=== PATIENT | female | born 1980 | race Caucasian/White ===

== ENCOUNTER 2017-03-11 12:10 | Emergency (ER) | payer MEDICAID ==
--- NOTE | 2017-03-11 12:28 | EDM.PDOC ---
ED HPI GENERAL MEDICAL PROBLEM - General Chief Complaint: ENT Problem Stated Complaint: FEVER Time Seen by Provider: 03/11/17 12:14 - History of Present Illness INITIAL COMMENTS - FREE TEXT/NARRATIVE: HISTORY AND PHYSICAL: History of present illness: The patient is a 37-year-old female who presents with a low-grade temperature and feeling like she's going to start getting higher fever and a long-standing history of recurrent strep throat infections over the last one year. She says she is to have her tonsils removed in January but because of her living situation and her financial situation she could not follow through. She says she has recently moved here from [place] and is new to the area and does not have a clinic provider. She says that her right ear has been bothering her and a little bit of a sore throat and she has noticed a swollen gland on the right side she has no neck pain posteriorly no headache no chest pain or shortness of breath no nausea vomiting or diarrhea. Patient denies . Review of systems: As per history of present illness and below otherwise all systems reviewed and negative. Past medical history: As per history of present illness and as reviewed below otherwise noncontributory. Surgical history: As per history of present illness and as reviewed below otherwise noncontributory. Social history: No reported history of drug or alcohol abuse. Family history: As per history of present illness and as reviewed below otherwise noncontributory. Physical exam: Gen.: Well-developed well-nourished female whose voice is intact without hoarse or muffled voice and vital signs have been reviewed by me. HEENT: Atraumatic, normocephalic, pupils reactive, negative for conjunctival pallor or scleral icterus, mucous membranes moist, throat clear of exudates and there is only minimal posterior oropharyngeal erythema without gross tonsillar swelling and uvula is midline, there is a large lymph node in the anterior cervical region on the right without any left-sided adenopathy or posterior adenopathy. TMs are dulled bilaterally without any bulging and there is no mastoid tenderness or redness,, neck supple, nontender, trachea midline. Lungs: Clear to auscultation, breath sounds equal bilaterally, chest nontender. Heart: S1S2, regular rate and rhythm no overt murmurs Abdomen: Soft, nondistended, nontender. NABS Skin: No evidence of any overt rashes or lesions and turgor is normal Genitourinary: Deferred. Rectal: Deferred. Extremities: Atraumatic, negative for cords or calf pain. Neurovascular unremarkable. Neuro: Awake, alert, oriented. Cranial nerves II through XII unremarkable. Cerebellum unremarkable. Motor and sensory unremarkable throughout. Exam nonfocal. Diagnostics: Therapeutics: I discussed with the patient that her throat only looks slightly red and there is no exudates or tonsillar swelling but the concern is more for the swollen gland on the right anterior cervical chain. In light of her history I will go ahead and treat her with antibiotics and give her referral to our clinic as well as our ENT specialist Dr. Espino. Impression: Cervical adenopathy, pharyngitis Definitive disposition and diagnosis as appropriate pending reevaluation and review of above. ED ROS GENERAL - Review of Systems Review Of Systems: ROS reveals no pertinent complaints other than HPI. ED EXAM, GENERAL - Physical Exam Exam: See Below (See dictation) Departure - Departure Time of Disposition: 12:26 Disposition: Home, Self-Care 01 Condition: Good Clinical Impression: Cervical lymphadenopathy Pharyngitis Qualifiers: Pharyngitis/tonsillitis etiology: unspecified etiology Qualified Code(s): J02.9 - Acute pharyngitis, unspecified - Discharge Information Forms: ED Department Discharge Additional Instructions: The following information is given to patients seen in the emergency department who are being discharged to home. This information is to outline your options for follow-up care. We provide all patients seen in our emergency department with a follow-up referral. The need for follow-up, as well as the timing and circumstances, are variable depending upon the specifics of your emergency department visit. If you don't have a primary care physician on staff, we will provide you with a referral. We always advise you to contact your personal physician following an emergency department visit to inform them of the circumstance of the visit and for follow-up with them and/or the need for any referrals to a consulting specialist. The emergency department will also refer you to a specialist when appropriate. This referral assures that you have the opportunity for followup care with a specialist. All of these measure are taken in an effort to provide you with optimal care, which includes your followup. Under all circumstances we always encourage you to contact your private physician who remains a resource for coordinating your care. When calling for followup care, please make the office aware that this follow-up is from your recent emergency room visit. If for any reason you are refused follow-up, please contact the [facility] emergency department at and ask to speak to the emergency department charge nurse. [facility] Primary care- Internal Medicine and Family [facility] [place] [id number] [facility] Specialty Care - ENT [facility] [place] [phone] Please call and schedule a clinic follow-up appointment that he can be rechecked for the care plan we have been implementing here today. Push hydration and use [id number] Tylenol or ibuprofen for pain. Taking Biaxin until they are finished even if you're feeling better. ER as needed and as discussed
[2017-03-11 12:39] VITALS: BP 107/56
== END 2017-03-11 12:36 | disposition home or self-care (01) ==
LOC: MW.ED 12:10
DX: R59.0 Localized enlarged lymph nodes (principal); J02.9 Acute pharyngitis, unspecified
CPT/HCPCS: 99283

== ENCOUNTER 2017-04-10 11:56 | Emergency (ER) | payer MEDICAID ==
--- NOTE | 2017-04-10 12:09 | EDM.PDOC ---
ED HPI GENERAL MEDICAL PROBLEM - General Chief Complaint: General Stated Complaint: BODY ACHES, NAUSEATED, HEADACHE Time Seen by Provider: 04/10/17 12:08 Source of Information: Reports: Patient History Limitations: Reports: No Limitations - History of Present Illness INITIAL COMMENTS - FREE TEXT/NARRATIVE: HISTORY AND PHYSICAL: History of present illness: Patient is a 37-year-old female that presents to the emergency room today with complaints of nausea, diaphoresis, body aches, diarrhea, and low abdominal pain related to menses. Reports she woke up last night "sweaty" and was unable to get comfortable. Reports she has been taking Midol with minimal relief. Denies any vomiting, fever, chills, headache. States she is currently menstruating, normally has some cramping associated with this. No changes in her menses flow/duration - "normal" per patient report. Past medical history of headaches. Review of systems: As per history of present illness and below otherwise all systems reviewed and negative. Past medical history: As per history of present illness and as reviewed below otherwise noncontributory. Surgical history: As per history of present illness and as reviewed below otherwise noncontributory. Social history: No reported history of drug or alcohol abuse. Family history: As per history of present illness and as reviewed below otherwise noncontributory. Physical exam: General: Nontoxic appearing 37-year-old female. Able to speak in full sentences without shortness of breath. Answers questions appropriately. Alert and oriented HEENT: Atraumatic, normocephalic, pupils reactive, negative for conjunctival pallor or scleral icterus, mucous membranes moist, throat clear, neck supple, nontender, trachea midline. Lungs: Clear to auscultation, breath sounds equal bilaterally, chest nontender. Heart: S1S2, regular, negative for clicks, rubs, or JVD. Abdomen: Soft, nondistended, nontender. Negative for masses or hepatosplenomegaly. Negative for costovertebral tenderness. Pelvis: Stable nontender. Genitourinary: Deferred. Rectal: Deferred. Extremities: Atraumatic, negative for cords or calf pain. Neurovascular unremarkable. Neuro: Awake, alert, oriented. Cranial nerves II through XII unremarkable. Cerebellum unremarkable. Motor and sensory unremarkable throughout. Exam nonfocal. Diagnostics: CBC, CMP, UA, lipase, amylase, EKG Therapeutics: IV fluid, Zofran, Toradol Impression: #1 Nausea #2 Viral illness Plan: 1. May take Zofran as needed for nausea. Rest and try to increase her oral fluids to stay well hydrated. 2. May take Tylenol and/or ibuprofen as directed for body aches and pains. 3. Follow-up with her primary care provider in the next 1-2 days. Return to the ED as needed as discussed Definitive disposition and diagnosis as appropriate pending reevaluation and review of above. Onset: Other (Last night) Onset Date: 04/09/17 Duration: Hour(s): - Related Data Allergies Allergy/AdvReac Type Severity Reaction Status Date / Time bee pollen Allergy Hives Verified 04/10/17 12:09 Bleach (Sodium Hypochlorite) Allergy Hives Verified 04/10/17 12:09 cinnamon Allergy Hives Verified 04/10/17 12:09 orange Allergy Hives Verified 04/10/17 12:09 scorpion venom Allergy Airway Verified 04/10/17 12:09 Tightness Sulfa (Sulfonamide Allergy Hives Verified 04/10/17 12:09 Antibiotics) Home Meds: Home Meds Cetirizine [ZyrTEC] 10 mg DAILY 03/11/17 [History] Multivitamin [Multi-Vitamin Daily] 1 tab DAILY 03/11/17 [History] Past Medical History HEENT History: Reports: Otitis Media Cardiovascular History: Reports: None Respiratory History: Reports: None Gastrointestinal History: Reports: None Genitourinary History: Reports: None AUTH SPECIALIST History: Reports: None Musculoskeletal History: Reports: None Neurological History: Reports: None Psychiatric History: Reports: None Endocrine/Metabolic History: Reports: None Immunologic History: Reports: None Oncologic (Cancer) History: Reports: None Dermatologic History: Reports: None - Infectious Disease History Infectious Disease History: Reports: None - Past Surgical History Head Surgeries/Procedures: Reports: None HEENT Surgical History: Reports: Adenoidectomy, Other (See Below) Other HEENT Surgeries/Procedures: chronic strep throat Female Surgical History: Reports: Section, Tubal Ligation Social & Family History - Tobacco Use Smoking Status *Q: Current Every Day Smoker Years of Tobacco use: 5 Packs/Tins Daily: 0.5 - Recreational Drug Use Recreational Drug Use: No ED ROS GENERAL - Review of Systems Review Of Systems: ROS reveals no pertinent complaints other than HPI. ED EXAM, GENERAL - Physical Exam Exam: See Below (See dictation) EKG INTERPRETATION EKG Date: 04/10/17 Time: 13:09 Rhythm: NSR Rate (Beats/Min): 54 Comparison: NA - No Prior EKG Course - Vital Signs Last Recorded V/S: Last Vital Signs Temp 36.3 C 04/10/17 12:04 Pulse 64 04/10/17 12:04 Resp 18 04/10/17 12:04 BP 118/67 04/10/17 12:04 Pulse Ox 98 04/10/17 12:04 - Orders/Labs/Meds Orders: Active Orders 24 hr Category Date Time Status EKG Documentation Completion [RC] STAT Care 04/10/17 12:19 Active Labs: Laboratory Tests 04/10/17 04/10/17 04/10/17 Range/Units 12:44 12:44 13:40 WBC 9.69 (4.0-11.0) K/uL RBC 4.01 L (4.30-5.90) M/uL Hgb 13.0 (12.0-16.0) g/dL Hct 38.1 (36.0-46.0) % MCV 95.0 (80.0-98.0) fL MCH 32.4 H (27.0-32.0) pg MCHC 34.1 (31.0-37.0) g/dL RDW Std Deviation 46.0 (28.0-62.0) fl RDW Coeff of Keisha 13 (11.0-15.0) % Plt Count 320 (150-400) K/uL MPV 10.20 (7.40-12.00) fL Neut % (Auto) 60.1 (48.0-80.0) % Lymph % (Auto) 31.7 (16.0-40.0) % [place] % (Auto) 6.1 (0.0-15.0) % Eos % (Auto) 1.8 (0.0-7.0) % Baso % (Auto) 0.3 (0.0-1.5) % Neut # (Auto) 5.8 H (1.4-5.7) K/uL Lymph # (Auto) 3.1 H (0.6-2.4) K/uL [place] # (Auto) 0.6 (0.0-0.8) K/uL Eos # (Auto) 0.2 (0.0-0.7) K/uL Baso # (Auto) 0.0 (0.0-0.1) K/uL Nucleated RBC % 0.0 /100WBC Nucleated RBCs # 0 K/uL Sodium 138 (136-146) mmol/L Potassium 4.0 (3.5-5.1) mmol/L Chloride 109 (98-110) mmol/L Carbon Dioxide 20 L (21-31) mmol/L BUN 10 (6.0-23.0) mg/dL Creatinine 0.7 (0.6-1.5) mg/dL Est Cr Clr Drug Dosing 97.07 mL/min Estimated GFR (MDRD) > 60.0 ml/min Glucose 97 (60-110) mg/dL Calcium 9.0 (8.8-10.8) mg/dL Total Bilirubin 0.4 (0.1-1.5) mg/dL AST 18 (5-40) IU/L ALT 24 (8-54) IU/L Alkaline Phosphatase 63 (40-150) Total Protein 7.1 (6.0-8.0) g/dL Albumin 4.1 (3.5-5.0) g/dL Globulin 3.0 (2.0-3.5) g/dL Albumin/Globulin Ratio 1.4 (1.3-2.8) Amylase 37 (10-90) U/L Lipase 12 (7-80) U/L Urine Color YELLOW Urine Appearance CLEAR Urine pH 5.5 (5.0-8.0) Ur Specific [place] 1.010 (1.001-1.035) Urine Protein NEGATIVE (NEGATIVE) mg/dL Urine Glucose (UA) NEGATIVE (NEGATIVE) mg/dL Urine Ketones NEGATIVE (NEGATIVE) mg/dL Urine Occult Blood LARGE H (NEGATIVE) Urine Nitrite NEGATIVE (NEGATIVE) Urine Bilirubin NEGATIVE (NEGATIVE) Urine Urobilinogen 0.2 (<2.0) EU/dL Ur Leukocyte Esterase NEGATIVE (NEGATIVE) Urine RBC 5-7 (0-2/HPF) Urine WBC 0-2 (0-5/HPF) Ur Epithelial Cells OCCASIONAL (NONE-FEW) Urine Bacteria RARE (NEGATIVE) Meds: Medications Discontinued Medications Generic Name Dose Route Start Last Admin Trade Name Freq PRN Reason Stop Dose Admin Sodium Chloride 1,000 mls @ 999 mls/hr 04/10/17 12:19 04/10/17 12:51 Normal Saline IV 04/10/17 13:19 999 mls/hr STAT ONE Administration Ketorolac Tromethamine 30 mg 04/10/17 12:19 04/10/17 12:53 Toradol IVPUSH 04/10/17 12:20 30 mg ONETIME ONE Administration Ondansetron HCl 4 mg 04/10/17 12:19 04/10/17 12:52 Zofran IVPUSH 04/10/17 12:20 4 mg ONETIME ONE Administration Departure - Departure Time of Disposition: 14:04 Disposition: Home, Self-Care 01 Condition: Good Clinical Impression: Viral illness Nausea & vomiting Qualifiers: Vomiting type: unspecified Vomiting Intractability: unspecified Qualified Code( s): R11.2 - Nausea with vomiting, unspecified - Discharge Information Referrals: Leila Ricketts MD [Primary Care Provider] - Forms: ED Department Discharge Additional Instructions: The following information is given to patients seen in the emergency department who are being discharged to home. This information is to outline your options for follow-up care. We provide all patients seen in our emergency department with a follow-up referral. The need for follow-up, as well as the timing and circumstances, are variable depending upon the specifics of your emergency department visit. If you don't have a primary care physician on staff, we will provide you with a referral. We always advise you to contact your personal physician following an emergency department visit to inform them of the circumstance of the visit and for follow-up with them and/or the need for any referrals to a consulting specialist. The emergency department will also refer you to a specialist when appropriate. This referral assures that you have the opportunity for follow-up care with a specialist. All of these measure are taken in an effort to provide you with optimal care, which includes your follow-up. Under all circumstances we always encourage you to contact your private physician who remains a resource for coordinating your care. When calling for follow-up care, please make the office aware that this follow-up is from your recent emergency room visit. If for any reason you are refused follow-up, please contact the [facility] emergency department at and asked to speak to the emergency department charge nurse. Rayray Escudero [facility] - Primary Care [address] [place] [id number] 1. May take Zofran as needed for nausea. Rest and try to increase your oral fluids to stay well hydrated. 2. May take Tylenol and/or ibuprofen as directed for body aches and pains. 3. Follow-up with her primary care provider in the next 1-2 days. Return to the ED as needed as discussed - My Orders Last 24 Hours: My Active Orders 04/10/17 12:19 EKG Documentation Completion [RC] STAT - Assessment/Plan Last 24 Hours: My Active Orders 04/10/17 12:19 EKG Documentation Completion [RC] STAT
[2017-04-10] MEDS ORDERED: Ondansetron 4 MG/2 ML SDV IVPUSH ONE (12:19)
[2017-04-10] MEDS ORDERED: Ketorolac 30 MG/ML SDV IVPUSH ONE (12:19)
[2017-04-10] MEDS ORDERED: Sodium Chloride 0.9% 1,000 ML IV ONE (12:19)
[2017-04-10 13:29] LABS: CHLORIDE,CL 109 mmol/L (98-110); SODIUM,NA 138 mmol/L (136-146)
[2017-04-10 14:33] VITALS: BP 113/68
== END 2017-04-10 14:15 | disposition home or self-care (01) ==
LOC: MW.ED 11:56
DX: B34.9 Viral infection, unspecified (principal); F17.210 Nicotine dependence, cigarettes, uncomplicated; Z91.030 Bee allergy status; Z88.2 Allergy status to sulfonamides; Z79.899 Other long term (current) drug therapy; Z98.890 Other specified postprocedural states
CPT/HCPCS: 36415; 80053; 81001; 82150; 83690; 85025; 93005; 96361; 96374; 96375; 99283; J1885; J2405; J7040

== ENCOUNTER 2017-05-12 23:11 | Emergency (ER) | payer MEDICAID ==
--- NOTE | 2017-05-12 23:36 | EDM.PDOC ---
ED HPI GENERAL MEDICAL PROBLEM - General Chief Complaint: Lower Extremity Injury/Pain Stated Complaint: PT LT LEG HURT Time Seen by Provider: 05/12/17 23:34 Source of Information: Reports: Patient - History of Present Illness INITIAL COMMENTS - FREE TEXT/NARRATIVE: HISTORY AND PHYSICAL: History of present illness: []Patient presents with left knee pain she rates 4 out of 10, she has a history of tendinitis on the left knee tonight she is concerned that her foot seems cool to the touch, she is in no distress she has good pedal pulses good color normal capillary refill in the foot appears just fine. She is able to bear weight but has some discomfort about the knee in doing so she denies any injury or trauma No fever nausea vomiting chills sweats Patient has history of tubal ligation Review of systems: As per history of present illness and below otherwise all systems reviewed and negative. Past medical history: As per history of present illness and as reviewed below otherwise noncontributory. Surgical history: As per history of present illness and as reviewed below otherwise noncontributory. Social history: No reported history of drug or alcohol abuse. Family history: As per history of present illness and as reviewed below otherwise noncontributory. Physical exam: HEENT: Atraumatic, normocephalic, pupils reactive, negative for conjunctival pallor or scleral icterus, mucous membranes moist, throat clear, neck supple, nontender, trachea midline. Lungs: Clear to auscultation, breath sounds equal bilaterally, chest nontender. Heart: S1S2, regular, negative for clicks, rubs, or JVD. Abdomen: Soft, nondistended, nontender. Negative for masses or hepatosplenomegaly. Negative for costovertebral tenderness. Pelvis: Stable nontender. Genitourinary: Deferred. Rectal: Deferred. Extremities: Atraumatic, negative for cords or calf pain. Neurovascular unremarkable. Left knee no redness warmth open lesion exudate or bruising no ballooning of the patella hip and ankle and affected there is some medial joint line tenderness as well as tenderness with palpation of patellar tendon insertion entire limb neurovascularly intact, Homans sign is negative no swelling of calf or thigh Neuro: Awake, alert, oriented. Cranial nerves II through XII unremarkable. Cerebellum unremarkable. Motor and sensory unremarkable throughout. Exam nonfocal. Diagnostics: []X-ray left knee 3 views No hCG secondary to tubal ligation Therapeutics: []Rest ice ibuprofen Impression: []Left knee pain History of tendinitis Definitive disposition and diagnosis as appropriate pending reevaluation and review of above. Left Knee Pain Score (Numeric/FACES): 5 - Related Data Allergies Allergy/AdvReac Type Severity Reaction Status Date / Time bee pollen Allergy Hives Verified 04/10/17 12:09 Bleach (Sodium Hypochlorite) Allergy Hives Verified 04/10/17 12:09 cinnamon Allergy Hives Verified 04/10/17 12:09 orange Allergy Hives Verified 04/10/17 12:09 scorpion venom Allergy Airway Verified 04/10/17 12:09 Tightness Sulfa (Sulfonamide Allergy Hives Verified 04/10/17 12:09 Antibiotics) Home Meds: Home Meds Cetirizine [ZyrTEC] 10 mg DAILY 03/11/17 [History] Multivitamin [Multi-Vitamin Daily] 1 tab DAILY 03/11/17 [History] Past Medical History HEENT History: Reports: Otitis Media Cardiovascular History: Reports: None Respiratory History: Reports: None Gastrointestinal History: Reports: None Genitourinary History: Reports: None RECREATION COORDINATOR History: Reports: None Musculoskeletal History: Reports: None Neurological History: Reports: None Psychiatric History: Reports: None Endocrine/Metabolic History: Reports: None Immunologic History: Reports: None Oncologic (Cancer) History: Reports: None Dermatologic History: Reports: None - Infectious Disease History Infectious Disease History: Reports: None - Past Surgical History Head Surgeries/Procedures: Reports: None HEENT Surgical History: Reports: Adenoidectomy, Other (See Below) Other HEENT Surgeries/Procedures: chronic strep throat Female Surgical History: Reports: Section, Tubal Ligation Social & Family History - Tobacco Use Smoking Status *Q: Current Every Day Smoker Years of Tobacco use: 5 Packs/Tins Daily: 0.5 - Caffeine Use Caffeine Use: Reports: Coffee, Energy Drinks, Soda - Recreational Drug Use Recreational Drug Use: No Drug Use in Last 12 Months: No Review of Systems - Review of Systems Review Of Systems: ROS reveals no pertinent complaints other than HPI. ED EXAM, GENERAL - Physical Exam Exam: See Below Course - Vital Signs Last Recorded V/S: Last Vital Signs Temp 36.7 C 05/12/17 23:25 Pulse 82 05/12/17 23:25 Resp 17 05/12/17 23:25 BP 107/55 L 05/12/17 23:25 Pulse Ox 98 05/12/17 23:25 - Orders/Labs/Meds Orders: Active Orders 24 hr Category Date Time Status Knee 3V Lt [CR] Stat Exams 05/12/17 23:33 Taken Departure - Departure Time of Disposition: 00:28 Disposition: Home, Self-Care 01 Condition: Good Clinical Impression: Knee pain - Discharge Information Referrals: PCP,None [Primary Care Provider] - Forms: ED Department Discharge Additional Instructions: Continue rest ice and ibuprofen as needed Follow-up with orthopedist for evaluation with the medial joint line tenderness and old meniscus is a consideration Return if symptoms persist or worsen Tonight your foot has good strong pulses with no abnormality [facility] - [facility] Clinic [address], [address] [place] [address] my orthopedic The following information is given to patients seen in the emergency department who are being discharged to home. This information is to outline your options for follow-up care. We provide all patients seen in our emergency department with a follow-up referral. The need for follow-up, as well as the timing and circumstances, are variable depending upon the specifics of your emergency department visit. If you don't have a primary care physician on staff, we will provide you with a referral. We always advise you to contact your personal physician following an emergency department visit to inform them of the circumstance of the visit and for follow-up with them and/or the need for any referrals to a consulting specialist. The emergency department will also refer you to a specialist when appropriate. This referral assures that you have the opportunity for follow-up care with a specialist. All of these measure are taken in an effort to provide you with optimal care, which includes your follow-up. Under all circumstances we always encourage you to contact your private physician who remains a resource for coordinating your care. When calling for follow-up care, please make the office aware that this follow-up is from your recent emergency room visit. If for any reason you are refused follow-up, please contact the [facility] emergency department at and asked to speak to the emergency department charge nurse. - My Orders Last 24 Hours: My Active Orders 05/12/17 23:33 Knee 3V Lt [CR] Stat - Assessment/Plan Last 24 Hours: My Active Orders 05/12/17 23:33 Knee 3V Lt [CR] Stat
[2017-05-13 00:39] VITALS: BP 110/63
--- NOTE | 2017-05-13 13:44 | CR ---
EXAM DATE: 05/12/17 PATIENT'S AGE: 37 Patient: FAZAL CASEY Facility: [place], [place] Site . Site : 1980 Study: XRay Knee [id number]/[id number] 12:00:51 AM Ordering Physician: Peggy Bell Final Report: INDICATION: Knee pain, hx of tendonitis TECHNIQUE: Knee radiograph 3 views left COMPARISON: None FINDINGS: Bones: Alignment is normal. No acute fractures or aggressive bone lesions identified. Joint spaces: Unremarkable. No knee effusion is seen on the lateral exam. Soft tissues: Unremarkable. No radiopaque foreign bodies are seen. IMPRESSION: 1. No acute osseous injuries are noted. Dictated by: Georges Flores MD @ 05/13/2017 00:01:38 (Electronic Signature) Report Signed by Proxy. [facility]
== END 2017-05-13 00:34 | disposition home or self-care (01) ==
LOC: MW.ED 23:11
DX: M25.562 Pain in left knee (principal); F17.210 Nicotine dependence, cigarettes, uncomplicated; Z88.2 Allergy status to sulfonamides; Z79.899 Other long term (current) drug therapy
CPT/HCPCS: 73562-26-LT; 73562-LT; 99282; 99283

== ENCOUNTER 2017-05-16 07:23 | Emergency (ER) | payer MEDICAID ==
[2017-05-16 07:33] VITALS: BP 134/81
--- NOTE | 2017-05-16 07:44 | EDM.PDOC ---
ED HPI GENERAL MEDICAL PROBLEM - General Chief Complaint: ENT Problem Stated Complaint: HEADACHE Time Seen by Provider: 05/16/17 07:31 - History of Present Illness INITIAL COMMENTS - FREE TEXT/NARRATIVE: HISTORY AND PHYSICAL: History of present illness: The patient is a 37-year-old female who presents complaining of right ear pain that started at 2 AM. She has not had a fever chills cough runny nose sore throat nausea vomiting or diarrhea. The patient states that despite her several ER visits over the last couple of months she has followed up with Dr. Ricketts in the clinic. Patient denies that anything got into her ear and says that the pain is now radiating down her jaw. She has no sore throat or dental pain. Review of systems: As per history of present illness and below otherwise all systems reviewed and negative. Past medical history: As per history of present illness and as reviewed below otherwise noncontributory. Surgical history: As per history of present illness and as reviewed below otherwise noncontributory. Social history: No reported history of drug or alcohol abuse. Family history: As per history of present illness and as reviewed below otherwise noncontributory. Physical exam: Gen.: Well-developed well-nourished female who is nontoxic and vital signs have been reviewed by me HEENT: Atraumatic, normocephalic, pupils reactive, negative for conjunctival pallor or scleral icterus, mucous membranes moist, throat clear, neck supple, nontender, trachea midline. No cervical adenopathy or nuchal rigidity. There Is no evidence of any facial swelling. The left TM is normal with some slight dulling but there is no mastoid tenderness or redness. The left TM is very reddened and slightly bulging and the external canal has cerumen and debris in it and there is some narrowing and inflammation appreciated. The mastoid is without redness or tenderness on the right Lungs: Clear to auscultation, breath sounds equal bilaterally, chest nontender. Heart: S1S2, regular rate and rhythm no overt murmurs Abdomen: Soft, nondistended, nontender. NABS Pelvis: Stable nontender. Genitourinary: Deferred. Rectal: Deferred. Extremities: Atraumatic, negative for cords or calf pain. Neurovascular unremarkable. Neuro: Awake, alert, oriented. Cranial nerves II through XII unremarkable. Cerebellum unremarkable. Motor and sensory unremarkable throughout. Exam nonfocal. Diagnostics: [] Therapeutics: [] Impression: Right otitis media and otitis externa Definitive disposition and diagnosis as appropriate pending reevaluation and review of above. Right Ear Pain Score (Numeric/FACES): 9 - Related Data Allergies Allergy/AdvReac Type Severity Reaction Status Date / Time bee pollen Allergy Hives Verified 05/16/17 07:30 Bleach (Sodium Hypochlorite) Allergy Hives Verified 05/16/17 07:30 cinnamon Allergy Hives Verified 05/16/17 07:30 orange Allergy Hives Verified 05/16/17 07:30 scorpion venom Allergy Airway Verified 05/16/17 07:30 Tightness Sulfa (Sulfonamide Allergy Hives Verified 05/16/17 07:30 Antibiotics) Home Meds: Home Meds Cetirizine [ZyrTEC] 10 mg DAILY 03/11/17 [History] Multivitamin [Multi-Vitamin Daily] 1 tab DAILY 03/11/17 [History] Past Medical History HEENT History: Reports: Otitis Media Cardiovascular History: Reports: None Respiratory History: Reports: None Gastrointestinal History: Reports: None Genitourinary History: Reports: None 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 Musculoskeletal History: Reports: None Other Musculoskeletal History: tendinitis Neurological History: Reports: None Psychiatric History: Reports: None Endocrine/Metabolic History: Reports: None Immunologic History: Reports: None Oncologic (Cancer) History: Reports: None Dermatologic History: Reports: None - Infectious Disease History Infectious Disease History: Reports: None - Past Surgical History Head Surgeries/Procedures: Reports: None HEENT Surgical History: Reports: Adenoidectomy, Other (See Below) Other HEENT Surgeries/Procedures: chronic strep throat Female Surgical History: Reports: Section, Tubal Ligation Social & Family History - Family History Family Medical History: Noncontributory - Tobacco Use Smoking Status *Q: Current Every Day Smoker Years of Tobacco use: 20 Packs/Tins Daily: 1 - Caffeine Use Caffeine Use: Reports: Soda - Recreational Drug Use Recreational Drug Use: No Drug Use in Last 12 Months: No ED ROS GENERAL - Review of Systems Review Of Systems: ROS reveals no pertinent complaints other than HPI. ED EXAM, GENERAL - Physical Exam Exam: See Below (See dictation) Course - Vital Signs Last Recorded V/S: Last Vital Signs Temp 36.4 C 10/08/17 07:30 Pulse 83 05/16/17 07:30 Resp 18 05/16/17 07:30 BP 134/81 05/16/17 07:30 Pulse Ox 99 05/16/17 07:30 Departure - Departure Time of Disposition: 07:43 Disposition: Home, Self-Care 01 Condition: Good Clinical Impression: Otitis media Qualifiers: Otitis media type: unspecified Chronicity: acute Qualified Code(s): H66.90 - Otitis media, unspecified, unspecified ear Otitis externa Qualifiers: Otitis externa type: unspecified type Chronicity: acute Laterality: right Qualified Code(s): H60.501 - Unspecified acute noninfective otitis externa, right ear - Discharge Information Referrals: Leila Ricketts MD [Primary Care Provider] - Additional Instructions: The following information is given to patients seen in the emergency department who are being discharged to home. This information is to outline your options for follow-up care. We provide all patients seen in our emergency department with a follow-up referral. The need for follow-up, as well as the timing and circumstances, are variable depending upon the specifics of your emergency department visit. If you don't have a primary care physician on staff, we will provide you with a referral. We always advise you to contact your personal physician following an emergency department visit to inform them of the circumstance of the visit and for follow-up with them and/or the need for any referrals to a consulting specialist. The emergency department will also refer you to a specialist when appropriate. This referral assures that you have the opportunity for followup care with a specialist. All of these measure are taken in an effort to provide you with optimal care, which includes your followup. Under all circumstances we always encourage you to contact your private physician who remains a resource for coordinating your care. When calling for followup care, please make the office aware that this follow-up is from your recent emergency room visit. If for any reason you are refused follow-up, please contact the [facility] emergency department at and ask to speak to the emergency department charge nurse. [facility] Primary care- Internal Medicine [place] [address] Please take antibiotics until they're finished and used eardrops as directed, amoxicillin and Cortisporin Insty Meds. Please take [id number] Tylenol or ibuprofen for pain and expect pain to improve over the next several days. Please call and follow-up with your provider in the next few days to reevaluate the care plan and return to ER as needed and as discussed
== END 2017-05-16 07:57 | disposition home or self-care (01) ==
LOC: MW.ED 07:23
DX: H66.91 Otitis media, unspecified, right ear (principal); H60.501 Unspecified acute noninfective otitis externa, right ear; F17.210 Nicotine dependence, cigarettes, uncomplicated; Z88.2 Allergy status to sulfonamides; Z79.899 Other long term (current) drug therapy
CPT/HCPCS: 99282; 99283

== ENCOUNTER 2017-09-20 12:58 | Emergency (ER) | payer MEDICAID ==
[2017-09-20 13:45] VITALS: BP 112/59
--- NOTE | 2017-09-20 14:22 | EDM.PDOC ---
ED HPI GENERAL MEDICAL PROBLEM - General Chief Complaint: Lower Extremity Injury/Pain Stated Complaint: RT ANKLE Time Seen by Provider: 09/20/17 14:16 Source of Information: Reports: Patient History Limitations: Reports: No Limitations - History of Present Illness INITIAL COMMENTS - FREE TEXT/NARRATIVE: HISTORY AND PHYSICAL: History of present illness: [Patient comes to the emergency room complaining of pain to her right hip knee and ankle. States that she was walking on some ice when she slipped and slid but did not fall. She was able to brace herself with her right leg to prevent falling. This occurred at noon today, approximaterly 2 hours prior to being seen in the ER. She now complains of pain extending from her R hip to her R foot. Pain is an aching sensation, and feels like muscle tightness. She has no weakness numbness or tingling. She has not taken any medication for her symptoms. 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 Past medical history: As per history of present illness and as reviewed below otherwise noncontributory. Surgical history: As per history of present illness and as reviewed below otherwise noncontributory. Social history: No reported history of drug or alcohol abuse. Family history: As per history of present illness and as reviewed below otherwise noncontributory. Physical exam: HEENT: Atraumatic, normocephalic. Extremities: Atraumatic in appearance. She is tender with palpation over her right lateral lower leg extending from hip to ankle. No limping with walking. Strength is 5 out of 5. No calf pain or swelling. Neurovascular unremarkable. Neuro: Awake, alert, oriented. Motor and sensory unremarkable throughout. Exam nonfocal. Impression: [Right lower extremity strain] Plan: [Discussed with patient that since she didnt fall, her pain is muscular in nature. Excuse from work until tomorrow. Patient agrees to take naproxen which she already has at home. Follow-up with PCP. Strict return precautions reviewed. Patient is in agreement with today's plan.] Definitive disposition and diagnosis as appropriate pending reevaluation and review of above. right hip, knee, ankle Pain Score (Numeric/FACES): 6 - Related Data Allergies Allergy/AdvReac Type Severity Reaction Status Date / Time bee pollen Allergy Hives Verified 09/20/17 13:41 Bleach (Sodium Hypochlorite) Allergy Hives Verified 09/20/17 13:41 cinnamon Allergy Hives Verified 09/20/17 13:41 orange Allergy Hives Verified 09/20/17 13:41 scorpion venom Allergy Airway Verified 09/20/17 13:41 Tightness Sulfa (Sulfonamide Allergy Hives Verified 09/20/17 13:41 Antibiotics) Home Meds: Home Meds Cetirizine [ZyrTEC] 10 mg PO DAILY 03/11/17 [History] Multivitamin [Multi-Vitamin Daily] 1 tab PO DAILY 03/11/17 [History] Divalproex Sodium [Depakote] 500 mg PO DAILY 09/20/17 [History] Past Medical History HEENT History: Reports: Otitis Media Cardiovascular History: Reports: None Respiratory History: Reports: None Gastrointestinal History: Reports: None Genitourinary History: Reports: None 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 Musculoskeletal History: Reports: None Other Musculoskeletal History: tendinitis Neurological History: Reports: None Psychiatric History: Reports: None Endocrine/Metabolic History: Reports: None Immunologic History: Reports: None Oncologic (Cancer) History: Reports: None Dermatologic History: Reports: None - Infectious Disease History Infectious Disease History: Reports: None - Past Surgical History Head Surgeries/Procedures: Reports: None HEENT Surgical History: Reports: Adenoidectomy, Other (See Below) Other HEENT Surgeries/Procedures: chronic strep throat Female Surgical History: Reports: Section, Tubal Ligation Social & Family History - Family History Family Medical History: Noncontributory - Tobacco Use Smoking Status *Q: Current Every Day Smoker Years of Tobacco use: 20 Packs/Tins Daily: 0.5 - Caffeine Use Caffeine Use: Reports: Coffee, Soda - Recreational Drug Use Recreational Drug Use: No Drug Use in Last 12 Months: No Review of Systems - Review of Systems Review Of Systems: ROS reveals no pertinent complaints other than HPI. ED EXAM, GENERAL - Physical Exam Exam: See Below Course - Vital Signs Last Recorded V/S: Last Vital Signs Temp 96.5 F 09/20/17 13:42 Pulse 86 09/20/17 13:42 Resp 18 09/20/17 13:42 BP 112/59 L 09/20/17 13:42 Pulse Ox 98 09/20/17 13:42 Departure - Departure Time of Disposition: 14:25 Disposition: Home, Self-Care 01 Condition: Good Clinical Impression: Right leg pain - Discharge Information Referrals: Leila Ricketts MD [Primary Care Provider] - Forms: ED Department Discharge Additional Instructions: The following information is given to patients seen in the emergency department who are being discharged to home. This information is to outline your options for follow-up care. We provide all patients seen in our emergency department with a follow-up referral. The need for follow-up, as well as the timing and circumstances, are variable depending upon the specifics of your emergency department visit. If you don't have a primary care physician on staff, we will provide you with a referral. We always advise you to contact your personal physician following an emergency department visit to inform them of the circumstance of the visit and for follow-up with them and/or the need for any referrals to a consulting specialist. The emergency department will also refer you to a specialist when appropriate. This referral assures that you have the opportunity for follow-up care with a specialist. All of these measure are taken in an effort to provide you with optimal care, which includes your follow-up. Under all circumstances we always encourage you to contact your private physician who remains a resource for coordinating your care. When calling for follow-up care, please make the office aware that this follow-up is from your recent emergency room visit. If for any reason you are refused follow-up, please contact the [facility] emergency department at and asked to speak to the emergency department charge nurse. [facility] Primary [facility] [address] [place] [id number] Follow-up with your regular primary care provider at the clinic listed above in 48-72 hours. You may return to work tomorrow. May alternate Tylenol and ibuprofen, or take the naproxen that you have at home. Ice packs may help area discomfort. Return to ER as needed as discussed.
== END 2017-09-20 14:37 | disposition home or self-care (01) ==
LOC: MW.ED 12:58
DX: S86.911A Strain of unspecified muscle(s) and tendon(s) at lower leg level, right leg, initial encounter (principal); F17.210 Nicotine dependence, cigarettes, uncomplicated; Z79.899 Other long term (current) drug therapy; Z88.2 Allergy status to sulfonamides; Z91.030 Bee allergy status; Z91.018 Allergy to other foods; Z91.09 Other allergy status, other than to drugs and biological substances; W18.49XA Other slipping, tripping and stumbling without falling, initial encounter
CPT/HCPCS: 99283

== ENCOUNTER 2018-01-08 06:53 | Emergency (ER) | payer MEDICAID ==
--- NOTE | 2018-01-08 07:12 | EDM.PDOC ---
ED HPI GENERAL MEDICAL PROBLEM - General Chief Complaint: Skin Complaint Stated Complaint: POSSIBLE BUG BITE ON BAG Time Seen by Provider: 01/08/18 07:10 Source of Information: Reports: Patient - History of Present Illness INITIAL COMMENTS - FREE TEXT/NARRATIVE: HISTORY AND PHYSICAL: History of present illness: [Patient has a persistent lesion on the right side of her neck which appears to be a boil she states that it does abscess at times and she squeezes out Proscar and weight is red and tender no exudate for culture. It appears to be inflamed and ingrown hair she has had this lesion since September and on. She also currently has a lesion on her back that appears to be a boil that is been being treated by nursing staff at [email or web address] as she works at [employer] a couple of times there is a quarter sized area of redness and tenderness no fluctuance No fever nausea vomiting chills sweats ] Review of systems: As per history of present illness and below otherwise all systems reviewed and negative. Past medical history: As per history of present illness and as reviewed below otherwise noncontributory. Surgical history: As per history of present illness and as reviewed below otherwise noncontributory. Social history: No reported history of drug or alcohol abuse. Family history: As per history of present illness and as reviewed below otherwise noncontributory. Physical exam: HEENT: Atraumatic, normocephalic, pupils reactive, negative for conjunctival pallor or scleral icterus, mucous membranes moist, throat clear, neck supple, nontender, trachea midline. Lungs: Clear to auscultation, breath sounds equal bilaterally, chest nontender. Heart: S1S2, regular, negative for clicks, rubs, or JVD. Abdomen: Soft, nondistended, nontender. Negative for masses or hepatosplenomegaly. Negative for costovertebral tenderness. Pelvis: Stable nontender. Genitourinary: Deferred. Rectal: Deferred. Extremities: Atraumatic, negative for cords or calf pain. Neurovascular unremarkable. Neuro: Awake, alert, oriented. Cranial nerves II through XII unremarkable. Cerebellum unremarkable. Motor and sensory unremarkable throughout. Exam nonfocal. Diagnostics: [Clinical ] Therapeutics: [Bactrim double strength by mouth twice a day #20 ] Impression: [Cellulitis ] Definitive disposition and diagnosis as appropriate pending reevaluation and review of above. - Related Data Allergies Allergy/AdvReac Type Severity Reaction Status Date / Time bee pollen Allergy Hives Verified 01/08/18 07:08 Bleach (Sodium Hypochlorite) Allergy Hives Verified 01/08/18 07:08 cinnamon Allergy Hives Verified 01/08/18 07:08 orange Allergy Hives Verified 01/08/18 07:08 scorpion venom Allergy Airway Verified 01/08/18 07:08 Tightness Sulfa (Sulfonamide Allergy Hives Verified 01/08/18 07:08 Antibiotics) Home Meds: Home Meds Cetirizine [ZyrTEC] 10 mg PO DAILY 03/11/17 [History] Past Medical History HEENT History: Reports: Otitis Media Cardiovascular History: Reports: None Respiratory History: Reports: None Gastrointestinal History: Reports: None Genitourinary History: Reports: None 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 Musculoskeletal History: Reports: None Other Musculoskeletal History: tendinitis Neurological History: Reports: None Psychiatric History: Reports: None Endocrine/Metabolic History: Reports: None Immunologic History: Reports: None Oncologic (Cancer) History: Reports: None Dermatologic History: Reports: None - Infectious Disease History Infectious Disease History: Reports: None - Past Surgical History Head Surgeries/Procedures: Reports: None HEENT Surgical History: Reports: Adenoidectomy, Other (See Below) Other HEENT Surgeries/Procedures: chronic strep throat Female Surgical History: Reports: Section, Tubal Ligation Social & Family History - Family History Family Medical History: Noncontributory - Caffeine Use Caffeine Use: Reports: Coffee, Soda ED ROS GENERAL - Review of Systems Review Of Systems: See Below ED EXAM, SKIN/RASH Exam: See Below Departure - Departure Time of Disposition: 07:12 Disposition: Home, Self-Care 01 Condition: Good Clinical Impression: Cellulitis - Discharge Information Referrals: Leila Ricketts MD [Primary Care Provider] - Additional Instructions: The following information is given to patients seen in the emergency department who are being discharged to home. This information is to outline your options for follow-up care. We provide all patients seen in our emergency department with a follow-up referral. The need for follow-up, as well as the timing and circumstances, are variable depending upon the specifics of your emergency department visit. If you don't have a primary care physician on staff, we will provide you with a referral. We always advise you to contact your personal physician following an emergency department visit to inform them of the circumstance of the visit and for follow-up with them and/or the need for any referrals to a consulting specialist. The emergency department will also refer you to a specialist when appropriate. This referral assures that you have the opportunity for follow-up care with a specialist. All of these measure are taken in an effort to provide you with optimal care, which includes your follow-up. Under all circumstances we always encourage you to contact your private physician who remains a resource for coordinating your care. When calling for follow-up care, please make the office aware that this follow-up is from your recent emergency room visit. If for any reason you are refused follow-up, please contact the [facility] emergency department at and asked to speak to the emergency department charge nurse.
[2018-01-08 07:36] VITALS: BP 137/79
== END 2018-01-08 07:30 | disposition home or self-care (01) ==
LOC: MW.ED 06:53
DX: L03.221 Cellulitis of neck (principal); Z88.2 Allergy status to sulfonamides; Z88.8 Allergy status to other drugs, medicaments and biological substances; Z79.899 Other long term (current) drug therapy
CPT/HCPCS: 99281; 99283

== ENCOUNTER 2018-04-27 14:55 | Emergency (ER) | payer MEDICAID ==
[2018-04-27] MEDS ORDERED: Ondansetron 4 MG Tab.DIS PO ONE (16:06)
--- NOTE | 2018-04-27 16:33 | EDM.PDOC ---
ED HPI GENERAL MEDICAL PROBLEM - General Chief Complaint: Gastrointestinal Problem Stated Complaint: NAUSIOUS SINCE WEDNESDAY Time Seen by Provider: 04/27/18 16:30 Source of Information: Reports: Patient History Limitations: Reports: No Limitations - History of Present Illness INITIAL COMMENTS - FREE TEXT/NARRATIVE: HISTORY AND PHYSICAL: History of present illness: Impression 38-year-old female here complaining with nausea x 4 days. She denies any fevers, chills vomiting, diarrhea, abdominal pain, cough, hematuria, dysuria. She states she has had sinus congestion for the last 5-6 days has a lot of sinus drainage she is swallowing. Patient reports she was on the phone does not believe that she is although she was on antibiotics in the first part of the shot did have some abnormal spotting. Review of systems: As per history of present illness and below otherwise all systems reviewed and negative. Past medical history: As per history of present illness and as reviewed below otherwise noncontributory. Surgical history: As per history of present illness and as reviewed below otherwise noncontributory. Social history: No reported history of drug or alcohol abuse. Family history: As per history of present illness and as reviewed below otherwise noncontributory. Physical exam: General: Patient sitting comfortably in no acute distress and nontoxic appearing HEENT: Maxillary sinus pain to palpation. Atraumatic, normocephalic, pupils reactive, negative for conjunctival pallor or scleral icterus, mucous membranes moist, throat clear, neck supple, nontender, trachea midline. No meningeal signs. Lungs: Clear to auscultation, breath sounds equal bilaterally, chest nontender. Heart: S1S2, regular, negative for clicks, rubs, or overt murmur. Abdomen: Soft, nondistended, nontender. Negative for masses or hepatosplenomegaly. Negative for costovertebral tenderness. Pelvis: Stable nontender. Genitourinary: Deferred. Rectal: Deferred. Extremities: Atraumatic, negative for cords or calf pain. Neurovascular unremarkable. Neuro: Awake, alert, oriented. Cranial nerves II through XII unremarkable. Cerebellum unremarkable. Motor and sensory unremarkable throughout. Exam nonfocal. Notes: Diagnostics: UA, urine hcg Therapeutics: 4mg Zofran ODT Prescriptions: Macrobid Impression: UTI Plan: 1. Take antibiotic as directed 2. Follow up with primary care provider 3. Return to ED as needed as discussed Definitive disposition and diagnosis as appropriate pending reevaluation and review of above. - Related Data Allergies Allergy/AdvReac Type Severity Reaction Status Date / Time bee pollen Allergy Hives Verified 04/27/18 15:24 Bleach (Sodium Hypochlorite) Allergy Hives Verified 04/27/18 15:24 cinnamon Allergy Hives Verified 04/27/18 15:24 orange Allergy Hives Verified 04/27/18 15:24 scorpion venom Allergy Airway Verified 04/27/18 15:24 Tightness Sulfa (Sulfonamide Allergy Hives Verified 04/27/18 15:24 Antibiotics) Home Meds: Home Meds Divalproex Sodium [Depakote] 250 mg PO BEDTIME 02/05/18 [History] Nitrofurantoin Monohyd/M-Cryst [Macrobid 100 mg Capsule] 100 mg PO BID 14 Days # 7 capsule 04/27/18 [Rx] Ondansetron HCl [Zofran] 4 mg PO DAILY 04/27/18 [History] Past Medical History HEENT History: Reports: Otitis Media Cardiovascular History: Reports: None Respiratory History: Reports: None Gastrointestinal History: Reports: None Genitourinary History: Reports: None 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 Musculoskeletal History: Reports: None Other Musculoskeletal History: tendinitis Neurological History: Reports: None Psychiatric History: Reports: None, Bipolar Endocrine/Metabolic History: Reports: None Immunologic History: Reports: None Oncologic (Cancer) History: Reports: None Dermatologic History: Reports: None - Infectious Disease History Infectious Disease History: Reports: Chicken Pox - Past Surgical History Head Surgeries/Procedures: Reports: None HEENT Surgical History: Reports: Adenoidectomy, Other (See Below) Other HEENT Surgeries/Procedures: chronic strep throat Female Surgical History: Reports: Section, Tubal Ligation, Other ( See Below) Other Female Surgeries/Procedures: ovarian cysts-on depo shot Social & Family History - Family History Family Medical History: Noncontributory - Tobacco Use Smoking Status *Q: Current Every Day Smoker Years of Tobacco use: 20 Packs/Tins Daily: 1 - Caffeine Use Caffeine Use: Reports: Coffee, Energy Drinks, Soda, Tea - Recreational Drug Use Recreational Drug Use: No ED ROS GENERAL - Review of Systems Review Of Systems: ROS reveals no pertinent complaints other than HPI. ED EXAM, GI/ABD - Physical Exam Exam: See Below (see dictation) Course - Vital Signs Last Recorded V/S: Last Vital Signs Temp 36.9 C 04/27/18 15:26 Pulse 80 04/27/18 15:26 Resp 15 04/27/18 15:26 BP 126/65 04/27/18 15:26 Pulse Ox 98 04/27/18 15:26 - Orders/Labs/Meds Labs: Laboratory Tests 04/27/18 04/27/18 Range/Units 16:15 16:15 Urine Color YELLOW Urine Appearance CLEAR Urine pH 6.5 (5.0-8.0) Ur Specific [place] <= 1.005 (1.001-1.035) Urine Protein NEGATIVE (NEGATIVE) mg/dL Urine Glucose (UA) NEGATIVE (NEGATIVE) mg/dL Urine Ketones NEGATIVE (NEGATIVE) mg/dL Urine Occult Blood NEGATIVE (NEGATIVE) Urine Nitrite NEGATIVE (NEGATIVE) Urine Bilirubin NEGATIVE (NEGATIVE) Urine Urobilinogen 0.2 (<2.0) EU/dL Ur Leukocyte Esterase SMALL (NEGATIVE) Urine RBC 0-2 (0-2/HPF) Urine WBC 4-12 (0-5/HPF) Ur Epithelial Cells FEW (NONE-FEW) Urine Bacteria FEW (NEGATIVE) Urine HCG, Qual NEGATIVE (NEGATIVE) Meds: Medications Discontinued Medications Generic Name Dose Route Start Last Admin Trade Name Antonio PRN Reason Stop Dose Admin Ondansetron HCl 4 mg 04/27/18 16:06 04/27/18 16:15 Zofran Odt PO 04/27/18 16:07 4 mg ONETIME ONE Administration Departure - Departure Time of Disposition: 17:01 Disposition: Home, Self-Care 01 Condition: Good Clinical Impression: UTI (urinary tract infection) - Discharge Information Prescriptions: Nitrofurantoin Monohyd/M-Cryst [Macrobid 100 mg Capsule] 100 mg PO BID 14 Days # 7 capsule Referrals: PCP,None [Primary Care Provider] - Forms: ED Department Discharge
[2018-04-27 17:15] VITALS: BP 99/53
== END 2018-04-27 17:08 | disposition home or self-care (01) ==
LOC: MW.ED 14:55
DX: N39.0 Urinary tract infection, site not specified (principal); F17.210 Nicotine dependence, cigarettes, uncomplicated; Z91.030 Bee allergy status; Z91.018 Allergy to other foods; Z88.2 Allergy status to sulfonamides; Z79.899 Other long term (current) drug therapy
CPT/HCPCS: 81001; 81025; 99283; A9270